=== PATIENT | female | born 1995 | race Two or more races ===

== ENCOUNTER 2017-06-13 06:23 | Emergency (ER) | payer OTHER | END 2017-06-13 08:05 | disposition home or self-care (01) | LOC: M ED 06:23 | DX: N63.10 Unspecified lump in the right breast, unspecified quadrant (principal); N63.20 Unspecified lump in the left breast, unspecified quadrant; Z79.899 Other long term (current) drug therapy | CPT/HCPCS: 99282 ==

== ENCOUNTER 2017-12-22 06:29 | Emergency (ER) | payer OTHER ==
[2017-12-22 07:18] LABS: BASO % 0.3 % (0.0-1.0); EOS % 0.5 % (0.0-3.0); HEMATOCRIT 34.5 % (36.0-47.0); HEMOGLOBIN 12.2 g/dl (12.0-15.5); IMMATURE GRANULOCYTE % 0.4 % (0-3.0); LYMPH # 1.2 10^3/uL (1.5-6.5); LYMPH % 16.9 % (24.0-44.0); MEAN CORPUSCULAR HEMOGLOBIN 31.5 pg (27.0-33.0); MEAN CORPUSCULAR HGB CONC 35.4 g/dl (32.0-36.5); MEAN CORPUSCULAR VOLUME 89.1 fl (80.0-96.0); MONO # 0.4 10^3/uL (0.0-0.8); NEUTROPHILS # 5.6 10^3/uL (1.8-7.7); NEUTROPHILS % 75.9 % (36.0-66.0); PLATELET COUNT, AUTOMATED 185 10^3/uL (150-450); RED BLOOD COUNT 3.87 10^6/uL (4.00-5.40); RED CELL DISTRIBUTION WIDTH 12.5 % (11.5-14.5); WHITE BLOOD COUNT 7.3 10^3/uL (4.0-10.0)
[2017-12-22] MEDS: METOCLOPRAMIDE INJ 10MG/2ML VIAL (J2765) IV (07:18)
[2017-12-22] MEDS: diphenhydrAMINE INJ 50MG/ML VIAL (J1200) IV (07:18)
[2017-12-22] MEDS: NS 1,000 ML IV (07:18)
[2017-12-22 07:37] LABS: ALBUMIN 3.5 GM/DL (3.2-5.2); ALBUMIN/GLOBULIN RATIO 1.13 (1.00-1.93); ALKALINE PHOSPHATASE 32 U/L (45-117); ALT/SGPT 24 U/L (12-78); ANION GAP 11 MEQ/L (8-16); AST/SGOT 25 U/L (7-37); BILIRUBIN,DIRECT 0.1 MG/DL (0.0-0.2); BILIRUBIN,TOTAL 0.4 MG/DL (0.2-1.0); BLOOD UREA NITROGEN 9 MG/DL (7-18); CALCIUM LEVEL 8.9 MG/DL (8.5-10.1); CARBON DIOXIDE LEVEL 23 MEQ/L (21-32); CHLORIDE LEVEL 105 MEQ/L (98-107); CREATININE FOR GFR 0.55 MG/DL (0.55-1.30); GLOMERULAR FILTRATION RATE > 60.0 (>60); GLUCOSE, FASTING 78 MG/DL (70-100); LIPASE 198 U/L (73-393); POTASSIUM SERUM 4.1 MEQ/L (3.5-5.1); SODIUM LEVEL 139 MEQ/L (136-145); TOTAL PROTEIN 6.6 GM/DL (6.4-8.2)
[2017-12-22 09:06] LABS: KETONE, URINE AUTO RFX 2+ mg/dL (NEGATIVE); LEUKOCYTE ESTERASE UR AUTO RFX NEGATIVE (NEGATIVE); MUCUS, URINE RFX LARGE (NEGATIVE); NITRITE, URINE AUTO RFX NEGATIVE (NEGATIVE); RBC, URINE AUTO RFX 1 /HPF (0-3); SPECIFIC GRAVITY UR AUTO RFX 1.029 (1.002-1.035); SQUAM EPITHELIAL CELL UR AURFX 2 /HPF (0-6); WBC, URINE AUTO RFX 1 /HPF (0-3)
== END 2017-12-22 09:23 | disposition home or self-care (01) ==
LOC: M ED 06:29
DX: O99.281 Endocrine, nutritional and metabolic diseases complicating pregnancy, first trimester (principal); E86.0 Dehydration; O99.341 Other mental disorders complicating pregnancy, first trimester; F41.9 Anxiety disorder, unspecified; Z3A.12 12 weeks gestation of pregnancy
CPT/HCPCS: J1200

== ENCOUNTER 2018-05-06 10:48 | Emergency (ER) | payer OTHER ==
[~2018-05-06] VITALS: Ht 170.2 cm; Wt 77.3 kg
[~2018-05-06 10:48] MED LIST: HYDR-643; REGL10TA6 PO; RIGHTAB2; SERT-155; TRAZ-160
[2018-05-06 12:12] LABS: APPEARANCE, URINE CLEAR (CLEAR); BACTERIA, URINE AUTO NEGATIVE (NEGATIVE); BILIRUBIN, URINE AUTO NEGATIVE (NEGATIVE); BLOOD, URINE BLOOD NEGATIVE (NEGATIVE); COLOR, URINE YELLOW (YELLOW); GLUCOSE, URINE (UA) AUTO NEGATIVE (NEGATIVE); KETONE, URINE AUTO NEGATIVE (NEGATIVE); LEUKOCYTE ESTERASE, URINE AUTO NEGATIVE (NEGATIVE); MUCUS, URINE SMALL (NEGATIVE); NITRITE, URINE AUTO NEGATIVE (NEGATIVE); PROTEIN, URINE AUTO NEGATIVE (NEGATIVE); RBC, URINE AUTO 1 /HPF (0-3); SPECIFIC GRAVITY URINE AUTO 1.015 (1.002-1.035); SQUAMOUS EPITHELIAL CELL UR AU 1 /HPF (0-6); UROBILINOGEN, URINE AUTO 0.2 mg/dL (0.0-2.0); WBC, URINE AUTO 1 /HPF (0-3)
--- NOTE | 2018-05-06 12:32 | REP ---
BIOPHYSICAL PROFILE OB ULTRASOUND: 05/06/2018. Clinical history: Trauma. Patient 32 weeks gestation, fell on back with no sensation of movements since. Findings: There are no prior studies available. Based on LMP she is 32 weeks 3 days with EDC 06/28/2018. There is a single intrauterine gestation in vertex position with a closed 3.5 cm long cervix. Amniotic fluid volume is visually normal with an index of 12.2 cm. Two pockets of fluid were seen, one 8 cm, the other 4.2. Mid cord umbilical artery Doppler shows an S/D ratio of 2.64 with normal forward diastolic flow and a resistive index of 0.62. An anterior right-sided grade 2 placenta without previa or abruption is present. movement was observed by the technologist. Heart rate 153 bpm. The technologist notes indicate that the movement "appeared sluggish". Biophysical profile: Breathing 2 Tone 2 Movement 2 AFV 2 Biophysical profile score 8/8. Electronically Signed by Jace aMy MD 05/06/2018 12:24 P
[2018-05-06 12:41] VITALS: BP 104/60
[2018-05-06] MEDS ORDERED: PRENTAB9 PO (13:04)
[2018-05-06] MEDS ORDERED: MAPA500T2 PO (13:05)
== END 2018-05-06 12:46 | disposition admitted as inpatient to this hospital (09) ==
LOC: M ED 10:48
DX: O9A.213 Injury, poisoning and certain other consequences of external causes complicating pregnancy, third trimester (principal); M54.9 Dorsalgia, unspecified; R10.2 Pelvic and perineal pain; O36.8123 Decreased fetal movements, second trimester, fetus 3; W10.8XXA Fall (on) (from) other stairs and steps, initial encounter; Y92.89 Other specified places as the place of occurrence of the external cause; O99.343 Other mental disorders complicating pregnancy, third trimester; F41.9 Anxiety disorder, unspecified; Z3A.32 32 weeks gestation of pregnancy

== ENCOUNTER 2018-05-06 12:50 | Outpatient (CLI) | payer OTHER ==
[~2018-05-06] VITALS: Ht 170.2 cm; Wt 80.7 kg
[2018-05-06] MEDS ORDERED: PRENTAB9 PO (13:04)
[2018-05-06] MEDS ORDERED: MAPA500T2 PO (13:05)
[2018-05-06 13:07] VITALS: BP 93/52
--- NOTE | 2018-05-06 13:54 | IPNPDOC ---
Text Note Date of Service The patient was seen on 05/06/18. NOTE 22 yo at 32+3 weeks gestation presented to the ER and then to L&D after a fall down her kitchen steps this AM. She was walking down the steps and slipped and landed on her buttocks and left side. SHe did not hit her abdomen. She reports she hasn't felt baby move as much as usual since then. This occurred at ~0930 this AM. In the ER she had a formal US which revealed a viable, appropriately grown fetus. A BPP was performed which was 88 and there were no ultrasonographic findings of placental abruption. She denies any abdominal pain, contractions, vaginal discharge, leakage of fluid, or bleeding. She has not yet eaten today and she is hungry. She reports feeling movement, but not as much as usual. Chaperoned by RN Vitals - VSS, normotensive, afebrile, non tachycardic General - AAOX3, NAD, pleasant and conversant Abdomen - Gravid uterus, no fundal tenderness Back/buttocks - No brusing, lesions, or abnormalities where patient fell. No tenderness to palpation Extremities - No edema FHR - BL 140, moderate variability, +accels, questionable decel when RN was placing patient on monitor, overall Cat I and reassuring tracing No acute injuries as examined by the ER providers or by myself. status reassuring on formal US in the ER. Patient monitored for prolonged period of time and status remained reassuring with a Cat I tracing. No signs/symptoms of placental abruption or any other acute abnormality. Patient felt more movement after eating and was reassured. She was discharged with return precautions. DO FRANCOIS Green Fishbone, I+O Bonita PARRISH, I+O Vital Signs Date Time Temp Pulse Resp B/P (MAP) Pulse Ox O2 Delivery O2 Flow Rate FiO2 05/06/18 13:07 99.1 80 18 93/52 (66) Room Air LINDA KESSLER DO May 06, 2018 13:54
== END 2018-05-06 15:15 | disposition home or self-care (01) ==
LOC: M LDO 12:50
PROVIDERS: ATTEND Obstetrics & Gynecology
DX: O99.89 Other specified diseases and conditions complicating pregnancy, childbirth and the puerperium (principal); Z3A.32 32 weeks gestation of pregnancy; W10.8XXA Fall (on) (from) other stairs and steps, initial encounter
CPT/HCPCS: 59025; G0378; G0463

== ENCOUNTER 2018-06-20 09:08 | Outpatient (CLI) | payer OTHER ==
[~2018-06-20] VITALS: Ht 170.2 cm; Wt 88.5 kg
[~2018-06-20 09:08] MED LIST changes: +MAPA500T2 PO; +PRENTAB9 PO
[2018-06-20 09:41] VITALS: BP 114/66
[2018-06-20 10:33] VITALS: BP 116/79
--- NOTE | 2018-06-20 10:37 | NUR ---
[facility] L&D Outpatient Triage Note S: Giovana is a 22 y/o G1 at 38+6 via 11+5 week TVUS presenting to [facility] L&D triage for chief complaint of scant vaginal spotting and finger nail sized blood clot when wiping this mornig following urination. She denies any recent SVE or intercourse. She reports some non-painful ctx. She denies LOF and endorses nml movement. Her is c/b depression which is being treated with therapy from clinic and asthma-mild intermittent. GBS NEG. O: VSS/AF GEN: A&Ox3 ABD: Gravid; NTTP; relaxed uterine resting tone EXT: Neg homans; no edema FHR: 135 mod variability + accelerations, no decelerations TOCO: CTX q 8-12 min lasting 60-90 sec; mild intensity via palp SCE: 2/50/-2; anterior position, medium consistency; scant bloody show present; no active bleeding IBOW A/P: F22 y/o G1 at 38+6. Latent phase labor. CAT I FHR. Reassuring status. No active bleeding. Extensive review of comfort measures for latent phase labor, warning signs and return precautions. Pt reports understanding w/o questions or concerns. Dc'd home with partner at this time.
[2018-06-20 21:57] VITALS: BP 129/75
[2018-06-20 23:24] VITALS: BP 133/86
== END 2018-06-20 10:55 | disposition home or self-care (01) ==
LOC: M LDO 09:08
PROVIDERS: ATTEND Obstetrics & Gynecology
DX: O26.853 Spotting complicating pregnancy, third trimester (principal); O47.1 False labor at or after 37 completed weeks of gestation; Z3A.38 38 weeks gestation of pregnancy
CPT/HCPCS: 59025; G0378; G0463

== ENCOUNTER 2018-06-20 21:45 | Outpatient (CLI) | payer OTHER ==
--- NOTE | 2018-06-21 00:22 | HPE ---
DATE OF ADMISSION: 06/20/2018 A 22-year-old 1, para 0, last menstrual period (LMP) 09/30/2017, estimated date of confinement (EDC) 06/28/2018 at 38 and 6, having contractions which are mild in nature, seen in the late afternoon and was 2 cm, sent home. Labs are A+, HIV negative, hepatitis (hep) negative, RPR negative, rubella immune. Varicella immune. Pap normal. Urine negative. Gonorrhea, chlamydia negative. 1-hour glucose 84. GBS is negative. Risk factors is she sees behavioral health on a regular basis for depression, and she has asthma - on medication. On examination, she appears distressed with contractions every 2-6 minutes, on monitor appeared to be mild. Pelvic examination: No vaginal bleeding or loss. No ruptured membranes. 80% effaced, anterior, -1 station, 2 cm. tight. Category one strip. Urine is 1.020, pH 6, negative. Blood pressure 129/75, respirations 18, pulse 95, temperature is 97.5. This patient has been here times two and has basically not changed her cervix. The contractions are spaced at 2 to 6 minutes apart, mild intensity. Plan is to hydrate the patient, discharged undelivered. Explained to her about kick chart, premature rupture of membranes, contractions lasting 30-40 seconds, 2-5 minutes apart. The patient has a followup with her provider tomorrow. She is welcome to return if there are changes in her state of contractions, otherwise she is discharged undelivered.
== END 2018-06-20 23:30 | disposition home or self-care (01) ==
LOC: M LDO 21:45
PROVIDERS: ATTEND Obstetrics & Gynecology
DX: O47.03 False labor before 37 completed weeks of gestation, third trimester (principal); Z3A.30 30 weeks gestation of pregnancy
CPT/HCPCS: 59025; G0378; G0463

== ENCOUNTER 2018-06-21 03:35 | Inpatient (IN) | payer OTHER ==
[~2018-06-21] VITALS: Ht 170.2 cm; Wt 86.4 kg
[2018-06-21 03:57] VITALS: BP 137/74
[2018-06-21] MEDS ORDERED: OXYTOCIN DRIP 30 UNITS in APPROPRIATE DILUENT 1 EA IV SCH (04:05)
[2018-06-21] MEDS ORDERED: LR 1,000 ML IV SCH (04:09)
[2018-06-21] MEDS ORDERED: RHOGAM 300 MCG (1500 IU) INJ (J2790) IM SCH (04:15)
[2018-06-21] MEDS ORDERED: METHYLERGONOVINE MALEATE 0.2 MG TAB PO PRN (04:15)
[2018-06-21] MEDS ORDERED: OXYTOCIN INJ 10 UNITS/ML VIAL (J2590) IV ONE (04:15)
[2018-06-21] MEDS ORDERED: MEASLES,MUMPS,RUBELLA VACCINE INJ (MMR-II) (90707) SC SCH (04:15)
[2018-06-21] MEDS ORDERED: IBUPROFEN 800 MG TAB PO PRN (04:15)
[2018-06-21] MEDS ORDERED: DOCUSATE SODIUM 100 MG CAP PO PRN (04:15)
[2018-06-21] MEDS ORDERED: DIBUCAINE 1% OINTMENT 30GM TOP PRN (04:15)
[2018-06-21] MEDS ORDERED: ANUSOL HC CREAM 30GM TOP PRN (04:15)
[2018-06-21 04:20] LABS: CORD GAS PO2 A 13.5 mmHg
[2018-06-21 04:22] LABS: CORD GAS ABE A -5.5; CORD GAS HCO3 A 23.9 MEQ/L; CORD GAS PCO2 A 63.6 mmHg; CORD GAS PH A 7.193 UNITS; CORD GAS SBC A 18.2 MEQ/L; CORD GAS TCO2 A 25.9 MEQ/L
[2018-06-21 04:23] LABS: CORD GAS HCO3 V 20.3 MEQ/L; CORD GAS O2 SAT V 73.1 %; CORD GAS PCO2 V 42.8 mmHg; CORD GAS PH V 7.294 UNITS; CORD GAS PO2 V 34.4 mmHg; CORD GAS TCO2 V 21.6 MEQ/L
[2018-06-21 05:11] LABS: HEMATOCRIT 36.3 % (36.0-47.0); HEMOGLOBIN 12.2 g/dl (12.0-15.5); MEAN CORPUSCULAR HEMOGLOBIN 30.2 pg (27.0-33.0); MEAN CORPUSCULAR HGB CONC 33.6 g/dl (32.0-36.5); MEAN CORPUSCULAR VOLUME 89.9 fl (80.0-96.0); PLATELET COUNT, AUTOMATED 164 10^3/uL (150-450); RED BLOOD COUNT 4.04 10^6/uL (4.00-5.40); WHITE BLOOD COUNT 16.1 10^3/uL (4.0-10.0)
--- NOTE | 2018-06-21 05:15 | HPE ---
DATE OF ADMISSION: 06/21/2018 This lady is a 1, para 0. Had her third admission to labor and delivery initially when she came in earlier on in the day she was 2 cm. She then went home. She returned at 11 o'clock at night evaluated for an hour and found to be still tight 2 cm, membranes intact. Category one strip. She went home. She came back by ambulance fully dilated and pushing. Vertex was presenting. Ruptured membranes occurred 0200 hours clear liquid and we anticipate an eminent vaginal delivery.
[2018-06-21 06:01] VITALS: BP 130/75
[2018-06-21] MEDS ORDERED: OXYTOCIN INJ 10 UNITS/ML VIAL (J2590) As Ordered ONE (06:22)
[2018-06-21 07:58] VITALS: BP 120/66
--- NOTE | 2018-06-21 09:14 | DN ---
DATE: 06/21/2018 This lady is a 1, admitted in active labor, fully dilated, by ambulance. Delivered over an intact perineum a live female infant, weighing 6 pounds 11 ounces or 3034 grams, Apgars of 9 and 9 at one and five minutes respectively. Arterial and venous pH were performed. The placenta delivered spontaneously thereafter. Three-vessel cord, membranes and tissues intact. The uterus contracted well under Pitocin. The anterior, posterior and lateral jaimes were normal. The sphincter was tight. The patient and baby tolerating the procedure well.
[2018-06-21] MEDS: PRENATAL VITAMINS CHEWABLE TABLET PO SCH (10:16)
[2018-06-21 18:36] VITALS: BP 106/67
--- NOTE | 2018-06-22 06:00 | IPNPDOC ---
Text Note Date of Service The patient was seen on 06/22/18. NOTE PPD1 States feeling well, pain controlled with prescribed meds. Baby bonding and feeding well. No heavy VB. Lochia slowing. Ambulatory. Tolerating PO without issues. Voiding spont. No CP/LP/SOB. VSSAF NAD A&O LE no C/C/E Ut at U-2, firm a/p: Doing well. Cont routine care. D/C likely tomorrow. Sessions VSBonita, I+O VSBonita I+O Vital Signs Date Time Temp Pulse Resp B/P (MAP) Pulse Ox O2 Delivery O2 Flow Rate FiO2 06/21/18 18:36 97.8 86 18 106/67 (80) I&O- Last 24 Hours up to 6 AM 06/22/18 06:00 Output Total 500 ml Balance -500 ml SESSIONS,EDIS Jimenez MD Jun 22, 2018 06:00
[2018-06-22 06:33] VITALS: BP 117/66
[2018-06-22 09:11] LABS: HEMATOCRIT 35.2 % (36.0-47.0); HEMOGLOBIN 11.7 g/dl (12.0-15.5); MEAN CORPUSCULAR HEMOGLOBIN 30.1 pg (27.0-33.0); MEAN CORPUSCULAR HGB CONC 33.2 g/dl (32.0-36.5); MEAN CORPUSCULAR VOLUME 90.5 fl (80.0-96.0); PLATELET COUNT, AUTOMATED 162 10^3/uL (150-450); RED BLOOD COUNT 3.89 10^6/uL (4.00-5.40); WHITE BLOOD COUNT 12.1 10^3/uL (4.0-10.0)
[2018-06-22] MEDS: PRENATAL VITAMINS CHEWABLE TABLET PO SCH (10:10)
[2018-06-22] MEDS: ACETAMINOPHEN 500 MG TAB PO PRN (10:11)
[2018-06-22 18:12] VITALS: BP 115/70
[2018-06-23 05:43] VITALS: BP 115/57
[2018-06-23] MEDS: PRENATAL VITAMINS CHEWABLE TABLET PO SCH (07:35)
--- NOTE | 2018-06-23 08:04 | DSES ---
DATE OF ADMISSION: 06/21/2018 DATE OF DISCHARGE: 06/23/2018 This lady is a 22-year-old 1 now para 1, came in at 39 weeks of gestation in spontaneous labor. Live female infant 6 pounds 11 ounces, 3034 grams. scores of 9 and 9 and 1 and 5 minutes respectfully. Arterial pH 7.19, base excess -5.5, venous pH 7.29, base excess -6.0. Her admitting hemoglobin was 12.2, hematocrit 36.3 and platelets were 164. Discharge hemoglobin 11.7, hematocrit 35.2 and platelets are 162. Vital signs on discharge blood pressure is 115/57, respirations 18, pulse 82, temperature 98.2. We discussed phlebitis, cystitis, mastitis, metritis, cellulitis, diet, exercise, pain management, perineal breast and wound care. control will be discussed at 6-week checkup. The rest examination is unremarkable. Normocephalic, atraumatic. Neck full range of motion. Pupils equal and reactive to light. Distal pulse symmetric. No evidence of deep venous thrombosis (DVT), pulmonary embolism (PE) or superficial phlebitis. Chest is clear bilateral bases. No wheezes or rhonchi. Abdomen is soft . Uterus two below. Lochia is moderate. Four quadrant bowel sounds are noted. Perineum is intact. She has no rashes, lesions or pruritus. No arthralgia, myalgia. No complaints of cough, wheezes, shortness of breath or dyspnea on exertion. She is neuro complete. Not bleeding. Rest of the examination unremarkable. The patient was discharged with medications. Followup in 6 weeks' time for checkup. All questions were answered.
--- NOTE | 2018-06-23 08:07 | IPNPDOC ---
Progress Note Date of Service: Jun 23, 2018 Day#: 2 Progress Note PPD 2 SUBJECT: Giovana is a 22yo [id number] s/p uncomplicated after presenting in active labor, doing well day # 2. She has been ambulating, voiding spontaneously without issue and tolerating regular diet. Breast feeding. Reports lochia is like a normal period. No f/c/n/v/CP/SOB. OBJECTIVE: VITAL SIGNS: Within normal limits, afebrile. Alert and oriented times three. Abdomen: Fundus firm at U-2. Soft, NTTP. Extremities: no pain with palpation of calves ASSESSMENT: Giovana is a 22yo [id number] s/p uncomplicated after presenting in active labor, doing well day # 2. Vitals within normal limits, afebrile, hemodynamically stable with no evidence of infection. PLAN: 1. Discharge to home today. 2. Tylenol and Motrin for pain. 3. Encourage breast feeding and ambulation. 4. Undecided on contraception, will discuss at PP visit again 5. Routine PP visit in 6 weeks in clinic. 6. Discussed return precautions at length. Dr. Lenore Blanchard MD VS, I&O, 24H, Fishbone Vital Signs/I&O Vital Signs Date Time Temp Pulse Resp B/P (MAP) Pulse Ox O2 Delivery O2 Flow Rate FiO2 06/23/18 05:43 98.2 82 18 115/57 (76) Laboratory Data 24H LABS Laboratory Tests 2 06/22/18 08:38: Nucleated Red Blood Cells % (auto) 0.0 CBC/BMP Laboratory Tests 06/22/18 08:38 Red Blood Count 3.89 L, Mean Corpuscular Volume 90.5, Mean Corpuscular Hemoglobin 30.1, Mean Corpuscular Hemoglobin Concent 33.2, Red Cell Distribution Width 13.2 Lenore Blanchard MD Jun 23, 2018 08:07
[2018-06-23] MEDS: ACETAMINOPHEN 500 MG TAB PO PRN (08:29)
[2018-06-23] MEDS ORDERED: IBUP-1114 PO (10:30)
[2018-06-23] MEDS ORDERED: COLA100C5 PO (10:30)
[2018-06-23] MEDS ORDERED: ANUS2.5C2 TOP (10:30)
[2018-06-23] MEDS ORDERED: DIBU1OIN TOP (10:30)
== END 2018-06-23 11:56 | disposition home or self-care (01) | DRG 807 ==
LOC: M LDO 03:35 → M LDI 03:42 → M OBS 07:43
PROVIDERS: ADMIT Obstetrics & Gynecology; ATTEND Obstetrics & Gynecology
PROC: 10E0XZZ Delivery of Products of Conception, External Approach (ICD-10-PCS; principal; 2018-06-21)
DX: O80 Encounter for full-term uncomplicated delivery (principal); Z37.0 Single live birth; Z3A.39 39 weeks gestation of pregnancy

== ENCOUNTER 2018-10-07 19:43 | Emergency (ER) | payer OTHER ==
[~2018-10-07] VITALS: Ht 170.2 cm; Wt 70.5 kg
[~2018-10-07 19:43] MED LIST changes: +ANUS2.5C2 TOP; +COLA100C5 PO; +DIBU1OIN TOP; +IBUP-1114 PO; -TRAZ-160; +TRAZ-252
[2018-10-07 20:12] LABS: BASO % 0.5 % (0.0-1.0); EOS # 0.1 10^3/uL (0.0-0.50); EOS % 0.8 % (0.0-3.0); HEMATOCRIT 38.2 % (36.0-47.0); HEMOGLOBIN 13.1 g/dl (12.0-15.5); LYMPH # 0.9 10^3/uL (1.5-6.5); LYMPH % 11.5 % (24.0-44.0); MEAN CORPUSCULAR HEMOGLOBIN 30.3 pg (27.0-33.0); MEAN CORPUSCULAR HGB CONC 34.3 g/dl (32.0-36.5); MEAN CORPUSCULAR VOLUME 88.2 fl (80.0-96.0); MONO # 0.7 10^3/uL (0.0-0.8); MONO % 9.1 % (0.0-5.0); NEUTROPHILS # 5.9 10^3/uL (1.8-7.7); NEUTROPHILS % 77.8 % (36.0-66.0); PLATELET COUNT, AUTOMATED 188 10^3/uL (150-450); RED BLOOD COUNT 4.33 10^6/uL (4.00-5.40); WHITE BLOOD COUNT 7.6 10^3/uL (4.0-10.0)
[2018-10-07 20:41] LABS: ALBUMIN 3.7 GM/DL (3.2-5.2); ALT/SGPT 26 U/L (12-78); BILIRUBIN,DIRECT 0.1 MG/DL (0.0-0.2); BILIRUBIN,TOTAL 0.3 MG/DL (0.2-1.0); BLOOD UREA NITROGEN 10 MG/DL (7-18); CALCIUM LEVEL 8.9 MG/DL (8.5-10.1); CARBON DIOXIDE LEVEL 24 MEQ/L (21-32); CHLORIDE LEVEL 106 MEQ/L (98-107); CREATININE FOR GFR 0.85 MG/DL (0.55-1.30); GLOMERULAR FILTRATION RATE > 60.0 (>60); GLUCOSE, FASTING 90 MG/DL (70-100); LIPASE 203 U/L (73-393); POTASSIUM SERUM 3.8 MEQ/L (3.5-5.1); SODIUM LEVEL 137 MEQ/L (136-145); TOTAL PROTEIN 6.9 GM/DL (6.4-8.2)
[2018-10-07] MEDS ORDERED: ACETAMINOPHEN 500 MG TAB PO ONE (21:15)
[2018-10-07 21:30] LABS: MONO SCRN NEGATIVE (NEGATIVE)
--- NOTE | 2018-10-07 23:04 | REPVR ---
EXAM: US Pelvis Complete, Transabdominal and US Duplex Artery or Vein, Ovaries, Limited EXAM DATE/TIME: 10/07/2018 9:31 PM CLINICAL HISTORY: 23 years old, female; Left lower quadrant and mid pelvic pain. TECHNIQUE: Imaging protocol: Real-time transabdominal pelvic ultrasound with image documentation. Real-time duplex ultrasound scan of the arterial or venous flow of the ovaries with B-mode, color Doppler flow and spectral waveform analysis. Complete Pelvis, Limited Duplex. COMPARISON: US BPP W/O NON STRESS TEST 05/06/2018 11:31 AM FINDINGS: Uterus/cervix: The anteverted uterus measures 7.1 cm x 2.8 cm x 5.2 cm. No myometrial mass is noted. In intrauterine device is noted in the endometrial canal in satisfactory position. Right adnexa: The right ovary is normal in appearance. No right ovarian cyst or right adnexal mass is noted. The right ovary measures 2.2 cm x 1.7 cm x 2 cm. Normal Doppler blood flow is demonstrated to the right ovary without evidence for right ovarian torsion. Left adnexa: The left ovary is normal in appearance. No left ovarian cyst or left adnexal mass is noted. The left ovary measures 2.9 cm x 1.6 cm x 2.3 cm. Normal Doppler blood flow is demonstrated to the left ovary without evidence for left ovarian torsion. Free fluid: No free fluid is seen in the pelvis from the images obtained. Bladder: Unremarkable partially distended bladder. IMPRESSION: 1. No acute sonographic findings in the pelvis. No ovarian torsion. 2. Intrauterine device in satisfactory position in the endometrial canal. Electronically signed by: Kane Green On 10/07/2018 23:04:00 PM
[2018-10-07] MEDS ORDERED: NITROFURANTOIN (MACROBID) 100 MG CAP PO ONE (23:15)
[2018-10-07] MEDS ORDERED: MACR100C43 PO (23:17)
[2018-10-07 23:22] VITALS: BP 109/57
== END 2018-10-07 23:25 | disposition home or self-care (01) ==
LOC: M ED 19:43
DX: N30.90 Cystitis, unspecified without hematuria (principal); Z79.899 Other long term (current) drug therapy